=== PATIENT | female | born 1980 | race Caucasian/White ===

== ENCOUNTER 2025-04-22 13:34 | Emergency (ER) | payer SELFPAY ==
[2025-04-22 13:43] VITALS: BP 110/75; PULSE 85; RESP 18; TEMP 99; BMI 28.6
== END 2025-04-22 14:03 | disposition home or self-care (01) ==
LOC: FER 13:34
DX: J02.9 Acute pharyngitis, unspecified (principal); H69.91 Unspecified Eustachian tube disorder, right ear; I88.9 Nonspecific lymphadenitis, unspecified
CPT/HCPCS: 99283-25; 99284-25

== ENCOUNTER 2025-05-12 11:27 | Inpatient (IN) | payer SELFPAY ==
[2025-05-12 12:02] VITALS: BMI 28.6
[2025-05-12 12:25] LABS: BASOPHILS # 0.05 x10^3/uL (0.01-0.08); EOSINOPHIL % 0.1 % (0.7-5.8)
[2025-05-12 12:31] LABS: INR 1.01 (0.83-1.09); PROTHROMBIN TIME (PATIENT) 11.2 SEC (9.7-13.0)
[2025-05-12 12:33] LABS: ACTIVATED PTT 26.2 SECONDS (25.2-36.5)
[2025-05-12 12:49] LABS: MEAN CELL VOLUME 90.3 fl (79.4-94.8); RDW 14.0 % (12.2-17.1)
[2025-05-12 12:53] LABS: ALK PHOS 142 U/L (45-117); CO2 24 mmol/L (21-32); CREATININE 0.7 mg/dl (0.6-1.3); GLUCOSE,RANDOM 89 mg/dl (74-106); SGOT/AST 26 U/L (15-37); SGPT/ALT 45 U/L (7-52); TOT PROT 6.5 g/dl (6.4-8.2)
[2025-05-12 13:02] LABS: ABSOLUTE IMMATURE GRANULOCYTES 0.07 x10^3/uL (0.0-0.031); EOSINOPHILS # 0.05 x10^3/uL (0.04-0.36); MCHC 32.7 g/dl (32.2-35.5); MONOCYTE # 3.40 x10^3/uL (0.24-0.86); MONOCYTE % 4.8 % (4.7-12.5)
[2025-05-12 13:11] LABS: EPITHELIAL CELLS 0-5 /hpf
[2025-05-12 14:17] LABS: HIV INTERPRETATION NEGATIVE (NEGATIVE)
[2025-05-12 14:18] LABS: HCV DIAGNOSTIC IN-HOUSE W/RFLX NON-REACTIVE (NONREACTIVE)
[2025-05-12] MEDS ORDERED: ACETAMINOPHEN 325 MG TABLET (FP) PO PRN (15:52)
[2025-05-12] MEDS ORDERED: MELATONIN 5 MG TABLETS PO PRN (15:56)
[2025-05-12 20:59] VITALS: RESP 18
[2025-05-13 08:31] LABS: IMMATURE PLATELET FRACTION # 0.30 x10^3/uL; MCHC 32.2 g/dl (32.2-35.5); MEAN CELL VOLUME 90.8 fl (79.4-94.8); RDW 14.0 % (12.2-17.1)
[2025-05-13 09:50] LABS: ACTIVATED PTT 25.7 SECONDS (25.2-36.5); INR 1.05 (0.83-1.09); PROTHROMBIN TIME (PATIENT) 11.6 SEC (9.7-13.0)
[2025-05-13 10:10] LABS: ALK PHOS 176.0 U/L (40-150); CO2 24.0 mmol/L (21-32); CREATININE 0.68 mg/dL (0.55-1.3); GLUCOSE,RANDOM 93.0 mg/dL (74-106); SGOT/AST 38.0 U/L (5-34); SGPT/ALT 63.0 U/L (0-55); TOT PROT 7.1 g/dl (6.4-8.2)
[2025-05-13 11:22] LABS: LDH 587.0 U/L (84-246)
[2025-05-13] MEDS: LACTATED RINGERS SOLUTION 1,000 ML/1,000 ML INFUS.BAG IV SCH (11:26)
[2025-05-13] MEDS: DEXAMETHASONE 4 MG TABLET (FP) PO ONE (12:15)
[2025-05-13] MEDS: DEXAMETHASONE SOD PHOSPHATE 10 MG/1 ML VIAL IVPUSH ONE (12:15)
[2025-05-13] MEDS: diphenhydrAMINE HCL 25 MG CAPSULE (FP) PO ONE (12:59)
[2025-05-13] MEDS: HYDROXYUREA 500 MG CAPSULE PO ONE (12:59)
[2025-05-13] MEDS: DEXAMETHASONE SODIUM PHOSPHATE IVPB ONE (13:00)
[2025-05-13] MEDS: DEXTROSE 5% IVPB ONE (13:00)
[2025-05-13] MEDS: WATER IVPB ONE (13:00)
[2025-05-13 14:09] LABS: RDW 14.2 % (12.2-17.1)
[2025-05-13 14:11] LABS: IMMATURE PLATELET FRACTION # 1.80 x10^3/uL; MCHC 32.0 g/dl (32.2-35.5); MEAN CELL VOLUME 91.0 fl (79.4-94.8); MEAN PLT VOLUME 11.2 fl (9.4-12.3)
[2025-05-13 14:47] LABS: HEPATITIS B SURF AG NON-MATERN NON-REACTIVE (NONREACTIVE)
[2025-05-13 15:19] VITALS: BP 119/70; PULSE 89; TEMP 97.7
== END 2025-05-13 16:11 | disposition short-term general hospital (02) | DRG 661 ==
LOC: FER 11:27 → J6S 17:00
PROVIDERS: ADMIT Student in an Organized Health Care Education/Training Program; ATTEND Student in an Organized Health Care Education/Training Program
PROC: 30233R1 Transfusion of Nonautologous Platelets into Peripheral Vein, Percutaneous Approach (ICD-10-PCS; principal; 2025-05-12)
DX: D69.6 Thrombocytopenia, unspecified (principal); R04.0 Epistaxis; D64.9 Anemia, unspecified
CPT/HCPCS: 36415; 36430; 71045-TC-FY; 80053; 81003; 81015; 82955; 83615; 84484; 84550; 84703; 85025; 85027; 85041; 85379; 85384; 85610; 85730; 86803; 86850; 86900; 86901; 87340; 87389; 87517; 88300-TC; 93005; 99285-25; J8999; P9034